=== PATIENT | male | born 1990 | race Caucasian/White ===

== ENCOUNTER 2017-05-11 16:18 | Emergency (ER) | payer BC ==
[2017-05-11 16:26] VITALS: BP 122/74; PULSE 74; TEMP 98.3; BMI 32.5
--- NOTE | 2017-05-11 17:14 | PDOC ---
History of Present Illness - General Chief Complaint: Injury Stated Complaint: INJURY Time Seen by Provider: 05/11/17 16:38 History Source: Patient Exam Limitations: No Limitations - History of Present Illness Initial Comments: 05/11/17 17:09 CHIEF COMPLAINT: Subungual hematoma to the right first finger HISTORY OF PRESENT ILLNESS: Patient is a 26-year-old male, no significant medical history currently on no medication reports on Saturday he slammed his finger in the door now with 100% subungual hematoma to right first finger. His mother who is a nurse put an 18-gauge needle under the nail and drained a lot of blood however still with throbbing pain. Good Range of motion to hand, no deformity to finger. Occurred: reports: last week Severity: reports: moderate Upper Extremity Pain Location: right: thumb Extremity Pain Location - Extremity Pain Location Extremity Pain Locations: right: thumb Past History - Past Medical History Allergies/Adverse Reactions: Allergies Allergy/AdvReac Type Severity Reaction Status Date / Time No Known Allergies Allergy Verified 05/11/17 16:25 Home Medications: Ambulatory Orders NK [No Known Home Medication] 05/11/17 COPD: No Other medical history: NONE - Suicide/Smoking/Psychosocial Hx Smoking History: Never smoked Hx Alcohol Use: Yes Drug/Substance Use Hx: No Review of Systems - Review of Systems Constitutional: No: Symptoms Reported Respiratory: No: Symptoms reported Cardiac (ROS): No: Symptoms Reported Integumentary: Yes: Erythema, Other (tip of the right first finger, 100 percent subungual hematoma to nail. ) Neurological: No: Symptoms reported, Paresthesia, Tingling, Tremors Hematologic/Lymphatic: No: Symptoms Reported All Other Systems: Reviewed and Negative *Physical Exam - Vital Signs Last Vital Signs Temp Pulse Resp BP Pulse Ox 98.3 F 74 20 122/74 99 05/11/17 16:22 05/11/17 16:22 05/11/17 16:22 05/11/17 16:22 05/11/17 16:22 - Physical Exam General Appearance: Yes: Appropriately Dressed. No: Apparent Distress Respiratory/Chest: positive: Lungs Clear, Normal Breath Sounds. negative: Respiratory Distress, Accessory Muscle Use Cardiovascular: positive: Regular Rhythm, Regular Rate Musculoskeletal: positive: Normal Inspection. negative: Decreased Range of Motion Extremity: positive: Normal Capillary Refill. negative: Normal Inspection (100 percent subungual hematoma. ), Swelling, Erythema, Inflammation Integumentary: positive: Normal Color, Dry, Erythema, Bruising. negative: Swelling, Ecchymosis Neurologic: positive: Alert, Normal Mood/Affect, Normal Response, Motor Strength 5/5 Procedures - Nail Trephination Method of Drainage: nail cauterized Sterile Dressing Applied: Yes Finger Splint: No Progress: 05/11/17 22:38 One whole placed with good result, good drainage. ED Treatment Course - RADIOLOGY Radiology Studies Ordered: Category Date Time Status FINGER(S) RIGHT [RAD] Stat Radiology 05/11/17 16:39 Taken Medical Decision Making - Medical Decision Making 05/11/17 17:15 A/P: Patient here for evaluation of injury to right first finger, there is a 100 % subungual hematoma to nail. X-ray performed and negative for acute fracture or dislocation. Nail trephination performed with good results, drainage noted. Sterile dressing applied. Informed patient that nail may come off recommend follow-up with hand orthopedic. *DC/Admit/Observation/Transfer Diagnosis at time of Disposition: Subungual hematoma of digit of hand Qualifiers: Encounter type: initial encounter Qualified Code(s): S60.10XA - Contusion of unspecified finger with damage to nail, initial encounter - Discharge Dispostion Disposition: HOME Condition at time of disposition: Stable Admit: No - Referrals Referrals: Sunny Bolanos MD [Staff Physician] - - Patient Instructions Printed Discharge Instructions: DI for Subungual Hematoma Additional Instructions: Please keep area covered, recommend follow-up with orthopedics if any increased redness swelling or signs of infection. If any redness, swelling, increased pain or infection return to the ER. - Post Discharge Activity Forms/Work/School Notes: Back to Work
== END 2017-05-11 17:37 | disposition home or self-care (01) ==
LOC: JERFT 16:18
PROC: 0H9QXZZ Drainage of Finger Nail, External Approach (ICD-10-PCS; principal; 2017-05-11)
DX: S60.111A Contusion of right thumb with damage to nail, initial encounter (principal); V48.4XXA Person boarding or alighting a car injured in noncollision transport accident, initial encounter; Y92.410 Unspecified street and highway as the place of occurrence of the external cause; Y93.89 Activity, other specified
CPT/HCPCS: 73140-TC-RT; 99281-25